=== PATIENT | female | born 2000 | race Caucasian/White ===

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

== ENCOUNTER 2023-04-16 17:07 | Emergency (ER) | payer BC, OTHER ==
[~2023-04-16] VITALS: Ht 160 cm; Wt 60.0 kg
[~2023-04-16 17:07] MED LIST: PANT-47 PO
--- NOTE | 2023-04-16 17:35 | NUR ---
CONSULTED MD AFTER TRIAGE. HE SAID HE WOULD PUT IN ORDERS FOR THE POSSIBLE TRAUMA
[2023-04-16 18:59] LABS: HCG SERUM QL NEGATIVE
[2023-04-16 19:16] LABS: ALANINE AMINOTRANSFERASE 21 U/L (12-78); ALBUMIN 3.4 G/DL (3.4-5.0); ALKALINE PHOSPHATASE 106 IU/L (46-116); ANION GAP 5 (8-16); ASPARTATE AMINO TRANSFERASE 21 U/L (10-37); BILIRUBIN,TOTAL 1.8 MG/DL (0.1-1.0); BLOOD UREA NITROGEN 6 MG/DL (7-18); BUN/CREATININE RATIO 10.9 (10.0-20.0); CHLORIDE 104 MMOL/L (99-107); CREATININE 0.55 MG/DL (0.40-0.90); GLUCOSE 100 MG/DL (70-104); SODIUM 138 MMOL/L (135-145); TOTAL PROTEIN 6.8 G/DL (6.4-8.2); eCRCL 134 ML/MIN; eGFR > 90 ML/MIN
[2023-04-16] MEDS ORDERED: iohexol 300mg/ml 100ml inj. ONE (21:31)
[2023-04-16] MEDS ORDERED: IBUP-1984 PO (22:41)
[2023-04-16] MEDS ORDERED: ketorolac trometh inj. 60 MG/2 ML VIAL IM ONE (23:05)
[2023-04-16 23:18] VITALS: BP 110/68; PULSE 82; RESP 18; TEMP 98.3; O2SAT 98
== END 2023-04-16 23:20 | disposition home or self-care (01) ==
LOC: ER 17:08
DX: S70.12XA Contusion of left thigh, initial encounter (principal); S70.11XA Contusion of right thigh, initial encounter; X58.XXXA Exposure to other specified factors, initial encounter; Y93.89 Activity, other specified; Y92.89 Other specified places as the place of occurrence of the external cause; Y99.8 Other external cause status
CPT/HCPCS: 36415; 70450; 71260; 72125; 74177; 80053; 84484; 84703; 96372; 99285; J1885; J3490; Q9967

== ENCOUNTER 2023-07-26 10:07 | Emergency (ER) | payer BC, OTHER ==
[~2023-07-26] VITALS: Ht 165.1 cm; Wt 61.4 kg
[2023-07-26 11:45] VITALS: BP 110/42; PULSE 83; RESP 18; TEMP 98.3; O2SAT 98
[2023-07-26] MEDS ORDERED: ONDA4TAB12 PO (11:53)
[2023-07-26] MEDS ORDERED: CYCL-1 PO (11:53)
== END 2023-07-26 11:40 | disposition home or self-care (01) ==
LOC: ER 10:08
DX: S16.1XXA Strain of muscle, fascia and tendon at neck level, initial encounter (principal); S60.211A Contusion of right wrist, initial encounter; Y04.8XXA Assault by other bodily force, initial encounter; Y93.89 Activity, other specified; Y92.89 Other specified places as the place of occurrence of the external cause; Y99.8 Other external cause status
CPT/HCPCS: 70450; 71100; 72040; 72074; 72100; 73110; 99284

== ENCOUNTER 2023-12-09 19:35 | Emergency (ER) | payer BC, OTHER ==
[~2023-12-09] VITALS: Ht 162.6 cm; Wt 58.2 kg
[~2023-12-09 19:35] MED LIST changes: +CYCL-1 PO; +ONDA4TAB12 PO
[2023-12-09 20:43] LABS: BASOPHILS # (AUTO) 0.1 X10'3 (0-0.2); BASOPHILS % (AUTO) 0.9 % (0-1); EOSINOPHILS # (AUTO) 0.1 X10'3 (0-0.9); EOSINOPHILS % (AUTO) 1.9 % (0-6); HEMATOCRIT 35.7 % (35.0-45.0); HEMOGLOBIN 11.9 g/dl (12.0-16.0); LYMPHOCYTES # (AUTO) 2.8 X10'3 (1.1-4.8); LYMPHOCYTES % (AUTO) 35.6 % (21-51); MEAN CORPUSCULAR HGB CONC 33.3 g/dL (33.0-36.5); MEAN PLATELET VOLUME 8.7 FL (7.4-10.4); MONOCYTES # (AUTO) 0.8 X10'3 (0-0.9); MONOCYTES % (AUTO) 9.8 % (2-12); NEUTROPHILS % (AUTO) 51.8 % (42-75); PLATELET COUNT 254 X10'3 (140-440); RED BLOOD COUNT 3.84 X10'6 (4.20-5.60); RED CELL DISTRIBUTION WIDTH 13.5 % (11.5-14.5); WHITE BLOOD COUNT 7.8 X10'3 (4.5-11.0)
[2023-12-09 20:51] LABS: D-DIMER 0.22 MG/L FEU (0-0.50)
[2023-12-09 20:58] LABS: ALANINE AMINOTRANSFERASE 21 U/L (12-78); ALBUMIN 3.3 G/DL (3.4-5.0); ALBUMIN/GLOBULIN RATIO 0.9 (1.1-1.5); ALKALINE PHOSPHATASE 63 IU/L (46-116); ANION GAP 10 (8-16); ASPARTATE AMINO TRANSFERASE 13 U/L (10-37); BILIRUBIN,TOTAL 0.4 MG/DL (0.1-1.0); BLOOD UREA NITROGEN 11 MG/DL (7-18); BUN/CREATININE RATIO 17.2 (10.0-20.0); CALCIUM 7.9 MG/DL (8.5-10.1); CHLORIDE 104 MMOL/L (99-107); CREATININE 0.64 MG/DL (0.40-0.90); GLUCOSE 86 MG/DL (70-104); POTASSIUM 3.7 MMOL/L (3.5-5.1); SODIUM 138 MMOL/L (135-145); TOTAL PROTEIN 6.8 G/DL (6.4-8.2); eCRCL 120 ML/MIN; eGFR > 90 ML/MIN
[2023-12-09 21:06] LABS: PRO BRAIN NATRIURETIC PEPTIDE 37 PG/ML (0-125)
[2023-12-09 21:16] LABS: HCG SERUM QL NEGATIVE
[2023-12-09] MEDS ORDERED: IBUP-1984 PO (21:24)
[2023-12-09] MEDS: ketorolac tromethamine 15mg/ml inj. IM ONE (21:57)
[2023-12-09 22:03] VITALS: BP 117/70; PULSE 84; RESP 16; TEMP 98.9; O2SAT 100
== END 2023-12-09 22:10 | disposition home or self-care (01) ==
LOC: ER 19:36
DX: R07.89 Other chest pain (principal); D64.9 Anemia, unspecified; Z60.2 Problems related to living alone; R06.03 Acute respiratory distress
CPT/HCPCS: 36415; 71045; 80053; 83880; 84484; 84703; 85025; 85379; 93005; 96372; 99285; J1885

== ENCOUNTER 2024-01-30 11:56 | Emergency (ER) | payer BC ==
[~2024-01-30] VITALS: Ht 162.6 cm; Wt 65.5 kg
[~2024-01-30 11:56] MED LIST changes: +ONDA-243 PO; -ONDA4TAB12 PO
[2024-01-30 12:07] VITALS: BP 104/71; PULSE 86; RESP 18; TEMP 97.8; O2SAT 99
== END 2024-01-30 14:50 | disposition left against medical advice (07) ==
LOC: ER 11:57
DX: R10.9 Unspecified abdominal pain (principal); M25.519 Pain in unspecified shoulder; Z53.21 Procedure and treatment not carried out due to patient leaving prior to being seen by health care provider